=== PATIENT | female | born 1930 | race Caucasian/White ===

== ENCOUNTER → 2016-10-10 | Outpatient (CLI) | payer MEDICARE ==
[~2016-10-10] MED LIST: ALDACTONE 25MG25 M1 PO; ANTIVERT 12.512.5 MG PO; ASPIRIN 81M81 MG/TA2 PO; CALCIUM CARBON600 MG PO; CLARITIN REDITA10 MG PO; COREG 3.123.125 MG/T PO; DITROPAN 5MG TAB5 MG PO; FERROUS SU325 MG/TAB PO; HYZAAR 50-12.1 UDTAB PO; IPRATROPIUM BROM3 M1 IH; LASIX 40MG TABL40 MG PO; MULTI VITAMINS1 TAB PO; NAPROSYN 2250 MG/TAB PO; NATURAL FLAX1000 MG PO; OMEGA 31000 MG PO; OYSCO 500500 M1 PO; PRINZIDE 25 MG-1 TAB; ROXANOL 20MG20 MG/ML SL; SYNTHROID 0.10.15 MG PO; TRIAMCINOLONE A15 G3 TP; TYLENOL 325MG325 MG PO; ULTRAM 50MG TAB50 MG PO; VITAMIN C500 MG PO; VITAMIN D1000 IU PO
== END ==
LOC: MC.RAD 13:09
DX: Z12.31 Encounter for screening mammogram for malignant neoplasm of breast (principal); D24.2 Benign neoplasm of left breast; D24.1 Benign neoplasm of right breast; Z85.3 Personal history of malignant neoplasm of breast

== ENCOUNTER 2016-11-26 19:08 | Inpatient (IN) | payer MEDICARE, OTHER ==
[2016-11-26] VITALS (24 sets, daily range): O2SAT 93–99
[~2016-11-26] VITALS: Ht 165.1 cm; Wt 75.5 kg
[~2016-11-26 19:08] MED LIST changes: -ALDACTONE 25MG25 M1 PO; -ANTIVERT 12.512.5 MG PO; -ASPIRIN 81M81 MG/TA2 PO; -COREG 3.123.125 MG/T PO; -FERROUS SU325 MG/TAB PO; -HYZAAR 50-12.1 UDTAB PO; -IPRATROPIUM BROM3 M1 IH; -NATURAL FLAX1000 MG PO; -OYSCO 500500 M1 PO; -ROXANOL 20MG20 MG/ML SL; -TRIAMCINOLONE A15 G3 TP; -TYLENOL 325MG325 MG PO; -ULTRAM 50MG TAB50 MG PO; -VITAMIN D1000 IU PO
[2016-11-26 20:03] LABS: BASO # 0.1 (0.0-0.2); BASO % 0.3 % (0.0-2.0); EOS # 0.1 (0.0-0.7); EOS % 0.4 % (0-4.0); GRAN # 16.6 (1.4-6.5); GRAN % 86.1 % (42.2-75.2); LYMPH # 0.7 (1.2-3.4); LYMPH % 3.8 % (20.0-51.0); MEAN CELL VOLUME 82 fl (80.0-100.0); MEAN CORPUSCULAR HGB CONC 34 g/dl (33.0-37.0); MEAN PLATELET VOLUME 9.3 fl (7.4-10.4); MONO # 1.7 (0.1-0.6); PLATELET COUNT 367 K/mm3 (130-400); RED BLOOD COUNT 3.72 M/mm3 (4.10-5.30); REDCELL DISTRIBUTION WIDTH-CV 12.9 % (11.5-14.5); WHITE BLOOD COUNT 19.3 K/mm3 (4.8-10.8)
[2016-11-26 20:05] LABS: HEMATOCRIT 30.6 % (37.0-47.0); HEMOGLOBIN 10.4 g/dl (12.5-16.0); MEAN CORPUSCULAR HEMOGLOBIN 28 pg (27.0-31.0)
[2016-11-26 20:07] LABS: ADD PATHOLOGY DIFF REVIEW NO
[2016-11-26] MEDS ORDERED: NATURAL FLAX1000 MG PO (20:09)
[2016-11-26 20:10] LABS: PH 6 (5-8); SQUAMOUS EPITHELIAL None Seen /hpf; URINE APPEARANCE Clear; URINE BACTERIA None Seen /hpf; URINE BILIRUBIN Negative (NEGATIVE); URINE BLOOD Negative (NEGATIVE); URINE COLOR Yellow; URINE GLUCOSE Negative (NEGATIVE); URINE KETONE Negative (NEGATIVE); URINE UROBILINOGEN Negative (NEGATIVE); URINE WBC 0-2 /hpf
[2016-11-26] MEDS ORDERED: HYZAAR 50-12.1 UDTAB PO (20:10)
[2016-11-26] MEDS ORDERED: ANTIVERT 12.512.5 MG PO (20:11)
[2016-11-26 20:13] LABS: INR 1.2 (0.8-3.0); PROTHROMBIN TIME 13.4 SECONDS (9.7-12.8)
[2016-11-26] MEDS ORDERED: FERROUS SU325 MG/TAB PO (20:14)
[2016-11-26] MEDS ORDERED: VITAMIN D1000 IU PO (20:14)
[2016-11-26] MEDS ORDERED: TRIAMCINOLONE A15 G3 TP (20:14)
[2016-11-26 20:15] LABS: ADJUSTED CALCIUM 10.1 mg/dL (8.4-10.2); ALBUMIN 3.6 gm/dL (3.5-5.0); CALCIUM 9.8 mg/dL (8.4-10.2); CREATININE, serum 1.45 mg/dL (0.52-1.25); POTASSIUM 3.6 mmol/L (3.4-5.0); TOTAL PROTEIN 7.3 gm/dL (6.4-8.2)
[2016-11-26] MEDS ORDERED: ASPIRIN 81M81 MG/TA2 PO (20:15)
[2016-11-26 20:16] LABS: PARTIAL THROMBOPLASTIN TIME 30.1 SECONDS (26.0-37.0)
[2016-11-26 20:28] LABS: BAND 2 % (0-10); NEUTROPHILS 86 % (42.0-75.2); TOTAL CELLS COUNTED 100
[2016-11-26 20:30] LABS: TROPONIN-I 0.173 ng/mL (0.000-0.034)
[2016-11-26 20:31] LABS: HYPOCHROMIA 1+
[2016-11-26 20:43] LABS: C-REACTIVE PROTEIN 14.8 mg/dL (0.0-0.9)
[2016-11-26] MEDS ORDERED: ULTRAM 50MG TAB50 MG PO (23:50)
[2016-11-27] VITALS (892 sets, daily range): BP systolic 91–123; BP diastolic 59–73; PULSE 71–92; TEMP 97.2–98.8; O2SAT 87–100
[2016-11-27 01:15] LABS: PH 5 (5-8); SQUAMOUS EPITHELIAL 0-2 /hpf; URINE APPEARANCE Hazy; URINE BACTERIA None Seen /hpf; URINE BILIRUBIN Negative (NEGATIVE); URINE BLOOD Negative (NEGATIVE); URINE COLOR Yellow; URINE GLUCOSE Negative (NEGATIVE); URINE KETONE Negative (NEGATIVE); URINE UROBILINOGEN Negative (NEGATIVE); URINE WBC 20-50 /hpf
[2016-11-27 02:16] LABS: SALICYLATE < 1.0 mg/dL
[2016-11-27 03:39] LABS: VENOUS BLOOD GAS BE 2.9 (-4-4); VENOUS BLOOD GAS SAO2 59.4 % (60-80)
[2016-11-27 03:42] LABS: VENOUS BLOOD GAS SITE VENIPUNCTURE
[2016-11-27 05:25] LABS: ARTERIAL BLD GAS O2 SATURATION 96.8 % (92-100); ARTERIAL BLD GAS TCO2 CT 24.6; ARTERIAL BLOOD GAS HCO3 23.5 meq/L (22-26); ARTERIAL BLOOD GAS PHT 7.45 C (7.35-7.45); ARTERIAL BLOOD GAS pH 7.45 (7.35-7.45); OXYHEMOGLOBIN 95.7 %
[2016-11-27 05:26] LABS: ALLEN TEST YES; ALLENS TEST RESULT PASS; ATS? YES
[2016-11-27 05:53] LABS: BASO % 0.2 % (0.0-2.0); GRAN # 16.7 (1.4-6.5); GRAN % 91.7 % (42.2-75.2); LYMPH # 0.8 (1.2-3.4); LYMPH % 4.2 % (20.0-51.0); MEAN CELL VOLUME 82 fl (80.0-100.0); MEAN CORPUSCULAR HGB CONC 34 g/dl (33.0-37.0); MEAN PLATELET VOLUME 9.5 fl (7.4-10.4); MONO # 0.6 (0.1-0.6); MONO % 3.5 % (1.7-9.3); PLATELET COUNT 295 K/mm3 (130-400); REDCELL DISTRIBUTION WIDTH-CV 12.8 % (11.5-14.5); WHITE BLOOD COUNT 18.1 K/mm3 (4.8-10.8)
[2016-11-27 05:54] LABS: INR 1.4 (0.8-3.0)
[2016-11-27 05:57] LABS: HEMATOCRIT 24.6 % (37.0-47.0); HEMOGLOBIN 8.3 g/dl (12.5-16.0); MEAN CORPUSCULAR HEMOGLOBIN 28 pg (27.0-31.0)
[2016-11-27 06:01] LABS: ADJUSTED CALCIUM 9.4 mg/dL (8.4-10.2); ALBUMIN 2.5 gm/dL (3.5-5.0); CALCIUM 8.2 mg/dL (8.4-10.2); CREATININE, serum 1.24 mg/dL (0.52-1.25); TOTAL PROTEIN 5.5 gm/dL (6.4-8.2)
[2016-11-27 06:16] LABS: POTASSIUM 2.9 mmol/L (3.4-5.0)
[2016-11-27 08:55] LABS: VENOUS BLOOD GAS BE 2.5 (-4-4)
[2016-11-27 08:56] LABS: VENOUS BLOOD GAS SITE CENTRAL LINE
[2016-11-27 12:16] LABS: VENOUS BLOOD GAS BE 0.6 (-4-4); VENOUS BLOOD GAS SAO2 73.7 % (60-80)
[2016-11-27 12:18] LABS: VENOUS BLOOD GAS SITE CENTRAL LINE
[2016-11-27 13:26] LABS: POTASSIUM 4.1 mmol/L (3.4-5.0)
[2016-11-27 16:04] LABS: VENOUS BLOOD GAS BE 2.7 (-4-4); VENOUS BLOOD GAS SAO2 61.4 % (60-80)
[2016-11-27 16:05] LABS: VENOUS BLOOD GAS SITE CENTRAL LINE
[2016-11-27 20:26] LABS: VENOUS BLOOD GAS BE 2.1 (-4-4); VENOUS BLOOD GAS SAO2 62.1 % (60-80)
[2016-11-27 20:27] LABS: VENOUS BLOOD GAS SITE CENTRAL LINE
[2016-11-28] VITALS (789 sets, daily range): BP systolic 95–113; BP diastolic 52–633; PULSE 74–98; TEMP 97.7–100.1; O2SAT 81–100
[2016-11-28 00:30] LABS: VENOUS BLOOD GAS BE 1.9 (-4-4); VENOUS BLOOD GAS SAO2 71.3 % (60-80)
[2016-11-28 00:32] LABS: VENOUS BLOOD GAS SITE CENTRAL LINE
[2016-11-28 04:52] LABS: BASO % 0.1 % (0.0-2.0); EOS % 0.1 % (0-4.0); GRAN % 81.6 % (42.2-75.2); LYMPH # 1.4 (1.2-3.4); LYMPH % 10.4 % (20.0-51.0); MEAN CELL VOLUME 82 fl (80.0-100.0); MEAN CORPUSCULAR HGB CONC 34 g/dl (33.0-37.0); MEAN PLATELET VOLUME 9.3 fl (7.4-10.4); MONO % 7.4 % (1.7-9.3); PLATELET COUNT 278 K/mm3 (130-400); RED BLOOD COUNT 2.74 M/mm3 (4.10-5.30); REDCELL DISTRIBUTION WIDTH-CV 12.9 % (11.5-14.5); WHITE BLOOD COUNT 13.5 K/mm3 (4.8-10.8)
[2016-11-28 04:58] LABS: HEMATOCRIT 22.5 % (37.0-47.0); HEMOGLOBIN 7.6 g/dl (12.5-16.0); MEAN CORPUSCULAR HEMOGLOBIN 28 pg (27.0-31.0)
[2016-11-28 05:00] LABS: ARTERIAL BLD GAS O2 SATURATION 96.9 % (92-100); ARTERIAL BLD GAS TCO2 CT 25.6; ARTERIAL BLOOD GAS BASE EXCESS 1.3 (-2-2); ARTERIAL BLOOD GAS HCO3 24.5 meq/L (22-26); ARTERIAL BLOOD GAS PHT 7.49 C (7.35-7.45); ARTERIAL BLOOD GAS PO2 97.7 mmHg (80-100); ARTERIAL BLOOD GAS PO2T 97.7 (80-100); ARTERIAL BLOOD GAS pH 7.49 (7.35-7.45); OXYHEMOGLOBIN 95.8 %
[2016-11-28 05:01] LABS: VENOUS BLOOD GAS BE 0.7 (-4-4)
[2016-11-28 05:03] LABS: ADJUSTED CALCIUM 9.5 mg/dL (8.4-10.2); ALBUMIN 2.2 gm/dL (3.5-5.0); BILIRUBIN,TOTAL 0.6 mg/dL (0.0-1.0); CALCIUM 8.1 mg/dL (8.4-10.2); CREATININE, serum 1.31 mg/dL (0.52-1.25); POTASSIUM 3.3 mmol/L (3.4-5.0); TOTAL PROTEIN 5.1 gm/dL (6.4-8.2)
[2016-11-28 05:06] LABS: VENOUS BLOOD GAS SITE CENTRAL LINE
[2016-11-28 05:07] LABS: ALLEN TEST YES; ALLENS TEST RESULT PASS; ATS? YES
[2016-11-28 09:04] LABS: VENOUS BLOOD GAS SAO2 66.2 % (60-80); VENOUS BLOOD GAS SITE CENTRAL LINE
[2016-11-28 13:57] LABS: VENOUS BLOOD GAS BE 2.8 (-4-4); VENOUS BLOOD GAS SAO2 65.2 % (60-80)
[2016-11-28 13:58] LABS: VENOUS BLOOD GAS SITE CENTRAL LINE
[2016-11-29] VITALS (825 sets, daily range): BP systolic 105–141; BP diastolic 52–98; PULSE 76–105; TEMP 97.7–100.8; O2SAT 71–100
[2016-11-29 05:53] LABS: BASO # 0.1 (0.0-0.2); BASO % 0.3 % (0.0-2.0); EOS # 0.4 (0.0-0.7); EOS % 2.1 % (0-4.0); GRAN # 12.8 (1.4-6.5); GRAN % 74.7 % (42.2-75.2); LYMPH # 2.1 (1.2-3.4); LYMPH % 12.2 % (20.0-51.0); MEAN CELL VOLUME 83 fl (80.0-100.0); MEAN CORPUSCULAR HGB CONC 34 g/dl (33.0-37.0); MEAN PLATELET VOLUME 9.5 fl (7.4-10.4); MONO # 1.8 (0.1-0.6); MONO % 10.3 % (1.7-9.3); PLATELET COUNT 292 K/mm3 (130-400); RED BLOOD COUNT 3.49 M/mm3 (4.10-5.30); REDCELL DISTRIBUTION WIDTH-CV 13.8 % (11.5-14.5); WHITE BLOOD COUNT 17.1 K/mm3 (4.8-10.8)
[2016-11-29 05:57] LABS: HEMATOCRIT 28.8 % (37.0-47.0); HEMOGLOBIN 9.8 g/dl (12.5-16.0); MEAN CORPUSCULAR HEMOGLOBIN 28 pg (27.0-31.0)
[2016-11-29 06:00] LABS: INR 1.3 (0.8-3.0); PROTHROMBIN TIME 14.4 SECONDS (9.7-12.8)
[2016-11-29 06:03] LABS: ADJUSTED CALCIUM 9.7 mg/dL (8.4-10.2); ALBUMIN 2.4 gm/dL (3.5-5.0); BILIRUBIN,TOTAL 1.1 mg/dL (0.0-1.0); CALCIUM 8.4 mg/dL (8.4-10.2); CREATININE, serum 1.33 mg/dL (0.52-1.25); POTASSIUM 3.9 mmol/L (3.4-5.0); TOTAL PROTEIN 5.3 gm/dL (6.4-8.2)
[2016-11-30] VITALS (547 sets, daily range): BP systolic 90–129; BP diastolic 49–74; PULSE 74–97; TEMP 97.5–99; O2SAT 79–100
[2016-11-30 05:51] LABS: BASO # 0.1 (0.0-0.2); BASO % 0.3 % (0.0-2.0); EOS # 0.3 (0.0-0.7); EOS % 1.6 % (0-4.0); GRAN # 12.3 (1.4-6.5); GRAN % 73.8 % (42.2-75.2); LYMPH % 12.2 % (20.0-51.0); MEAN CELL VOLUME 83 fl (80.0-100.0); MEAN CORPUSCULAR HGB CONC 34 g/dl (33.0-37.0); MEAN PLATELET VOLUME 9.7 fl (7.4-10.4); MONO % 11.7 % (1.7-9.3); PLATELET COUNT 271 K/mm3 (130-400); RED BLOOD COUNT 3.38 M/mm3 (4.10-5.30); REDCELL DISTRIBUTION WIDTH-CV 14.1 % (11.5-14.5); WHITE BLOOD COUNT 16.7 K/mm3 (4.8-10.8)
[2016-11-30 06:02] LABS: HEMATOCRIT 28.2 % (37.0-47.0); HEMOGLOBIN 9.5 g/dl (12.5-16.0); MEAN CORPUSCULAR HEMOGLOBIN 28 pg (27.0-31.0)
[2016-11-30 06:35] LABS: ADJUSTED CALCIUM 9.5 mg/dL (8.4-10.2); ALBUMIN 2.3 gm/dL (3.5-5.0); BILIRUBIN,TOTAL 1.1 mg/dL (0.0-1.0); CALCIUM 8.1 mg/dL (8.4-10.2); CREATININE, serum 1.34 mg/dL (0.52-1.25); POTASSIUM 3.4 mmol/L (3.4-5.0); TOTAL PROTEIN 5.1 gm/dL (6.4-8.2)
[2016-11-30 07:23] LABS: INR 1.4 (0.8-3.0); PROTHROMBIN TIME 16.2 SECONDS (9.7-12.8)
[2016-12-01 01:19] VITALS: BP 123/72; PULSE 83; TEMP 100.7; TEMP 102.8
[2016-12-01 04:59] VITALS: BP 91/46; PULSE 57; TEMP 100.6
[2016-12-01 10:02] VITALS: BP 103/54; PULSE 96; TEMP 98.6
[2016-12-01 14:04] VITALS: BP 99/56; PULSE 96; TEMP 98.9
[2016-12-01 17:44] VITALS: BP 121/68; PULSE 80; TEMP 98.8
[2016-12-01 22:06] VITALS: BP 122/82; PULSE 100; TEMP 98
[2016-12-02] VITALS (7 sets, daily range): BP systolic 86–870; BP diastolic 45–51; PULSE 80–103; TEMP 98.3–99.8
[2016-12-02 07:26] LABS: POTASSIUM 3.8 mmol/L (3.4-5.0)
[2016-12-02 11:22] LABS: CREATININE, serum 1.58 mg/dL (0.52-1.25)
[2016-12-03] VITALS (7 sets, daily range): BP systolic 94–132; BP diastolic 42–69; PULSE 52–104; TEMP 98.2–100.6
[2016-12-03 13:02] LABS: MEAN CELL VOLUME 85 fl (80.0-100.0); MEAN CORPUSCULAR HGB CONC 34 g/dl (33.0-37.0); MEAN PLATELET VOLUME 10.4 fl (7.4-10.4); PLATELET COUNT 251 K/mm3 (130-400); RED BLOOD COUNT 3.12 M/mm3 (4.10-5.30); WHITE BLOOD COUNT 19.7 K/mm3 (4.8-10.8)
[2016-12-03 13:04] LABS: ADD PATHOLOGY DIFF REVIEW NO; HEMATOCRIT 26.4 % (37.0-47.0); HEMOGLOBIN 8.9 g/dl (12.5-16.0); MEAN CORPUSCULAR HEMOGLOBIN 29 pg (27.0-31.0)
[2016-12-03 13:46] LABS: BAND 9 % (0-10); BURR CELLS 1+; EOSINOPHIL 5 % (0-4); NEUTROPHILS 73 % (42.0-75.2); PLATELET ESTIMATE NORMAL (NORMAL); TOTAL CELLS COUNTED 100
[2016-12-04 05:04] VITALS: BP 119/82; PULSE 102; TEMP 98.5
[2016-12-04 10:00] VITALS: BP 95/50; PULSE 88; TEMP 99.4
[2016-12-04 12:58] VITALS: BP 111/63; PULSE 89; TEMP 98.3
[2016-12-04 18:00] VITALS: BP 102/54; PULSE 90; TEMP 98.2
[2016-12-04 21:33] VITALS: BP 116/64; PULSE 83; TEMP 98.7
[2016-12-05] VITALS (7 sets, daily range): BP systolic 103–142; BP diastolic 52–82; PULSE 63–91; TEMP 98.2–99
[2016-12-05 07:39] LABS: MEAN CELL VOLUME 82 fl (80.0-100.0); MEAN CORPUSCULAR HGB CONC 35 g/dl (33.0-37.0); MEAN PLATELET VOLUME 9.6 fl (7.4-10.4); PLATELET COUNT 237 K/mm3 (130-400); RED BLOOD COUNT 2.88 M/mm3 (4.10-5.30); REDCELL DISTRIBUTION WIDTH-CV 14.5 % (11.5-14.5); WHITE BLOOD COUNT 14.9 K/mm3 (4.8-10.8)
[2016-12-05 07:53] LABS: HEMATOCRIT 23.7 % (37.0-47.0); HEMOGLOBIN 8.3 g/dl (12.5-16.0); MEAN CORPUSCULAR HEMOGLOBIN 29 pg (27.0-31.0)
[2016-12-05 07:59] LABS: CALCIUM 7.4 mg/dL (8.4-10.2); CREATININE, serum 1.73 mg/dL (0.52-1.25)
[2016-12-05] MEDS ORDERED: OYSCO 500500 M1 PO (12:36)
[2016-12-05] MEDS ORDERED: TYLENOL 325MG325 MG PO (12:36)
[2016-12-06 01:03] VITALS: BP 128/73; PULSE 76; TEMP 97.8
[2016-12-06 06:28] VITALS: BP 119/67; PULSE 73; TEMP 98.1
[2016-12-06 10:28] VITALS: BP 121/73; PULSE 94; TEMP 98.1
[2016-12-06 13:16] VITALS: BP 132/61; PULSE 84; TEMP 98.2
[2016-12-06] MEDS ORDERED: COREG 3.123.125 MG/T PO (14:34)
[2016-12-06] MEDS ORDERED: ALDACTONE 25MG25 M1 PO (14:35)
== END 2016-12-06 15:53 | DRG 871 ==
LOC: COL.ER 19:08 → SURG 22:04 → IMCU 22:04 → ICU 22:04 → IMCU 11-28 19:45 → SURG 11-30 09:30
PROVIDERS: Emergency Medicine; Family Medicine; Internal Medicine; Internal Medicine Cardiovascular Disease; Nurse Practitioner Family
PROC: 0FB03ZX Excision of Liver, Percutaneous Approach, Diagnostic (ICD-10-PCS; principal; 2016-11-29)
DX: A41.9 Sepsis, unspecified organism (principal); R65.21 Severe sepsis with septic shock; I21.4 Non-ST elevation (NSTEMI) myocardial infarction; N17.9 Acute kidney failure, unspecified; E87.1 Hypo-osmolality and hyponatremia; N13.6 Pyonephrosis; C22.8 Malignant neoplasm of liver, primary, unspecified as to type; E44.0 Moderate protein-calorie malnutrition; I10 Essential (primary) hypertension; I25.10 Atherosclerotic heart disease of native coronary artery without angina pectoris; Z85.3 Personal history of malignant neoplasm of breast; E87.6 Hypokalemia; D64.9 Anemia, unspecified
CPT/HCPCS: 99223-AI; 99233-AI; 99238; A4315; A9502; C1751; J1250; J1644; J1650; J1720; J1940; J2543; J2785; J3480; J7030; J7050; P9016

== ENCOUNTER 2016-12-12 10:48 | Inpatient (IN) | payer MEDICARE, OTHER ==
[2016-12-12] VITALS (289 sets, daily range): BP systolic 86–97; BP diastolic 49–63; PULSE 76–82; TEMP 97.6–97.8; O2SAT 81–100
[~2016-12-12] VITALS: Ht 165.1 cm; Wt 74.5 kg
[~2016-12-12 10:48] MED LIST changes: +ALDACTONE 25MG25 M1 PO; +ANTIVERT 12.512.5 MG PO; +ASPIRIN 81M81 MG/TA2 PO; +COREG 3.123.125 MG/T PO; +FERROUS SU325 MG/TAB PO; +HYZAAR 50-12.1 UDTAB PO; +NATURAL FLAX1000 MG PO; +OYSCO 500500 M1 PO; +TRIAMCINOLONE A15 G3 TP; +TYLENOL 325MG325 MG PO; +ULTRAM 50MG TAB50 MG PO; +VITAMIN D1000 IU PO
[2016-12-12 11:41] LABS: MEAN CELL VOLUME 82 fl (80.0-100.0); MEAN CORPUSCULAR HGB CONC 35 g/dl (33.0-37.0); MEAN PLATELET VOLUME 8.9 fl (7.4-10.4); PLATELET COUNT 288 K/mm3 (130-400); RED BLOOD COUNT 2.92 M/mm3 (4.10-5.30); REDCELL DISTRIBUTION WIDTH-CV 14.8 % (11.5-14.5)
[2016-12-12 11:44] LABS: ADD PATHOLOGY DIFF REVIEW NO; HEMATOCRIT 23.8 % (37.0-47.0); HEMOGLOBIN 8.4 g/dl (12.5-16.0); MEAN CORPUSCULAR HEMOGLOBIN 29 pg (27.0-31.0); WHITE BLOOD COUNT 41.4 K/mm3 (4.8-10.8)
[2016-12-12 11:53] LABS: VENOUS BLOOD GAS BE -1.7 (-4-4); VENOUS BLOOD GAS SAO2 76.6 % (60-80)
[2016-12-12 11:54] LABS: VENOUS BLOOD GAS SITE VENIPUNCTURE
[2016-12-12 12:09] LABS: PH 5 (5-8); SQUAMOUS EPITHELIAL 0-2 /hpf; URINE APPEARANCE Clear; URINE BACTERIA None Seen /hpf; URINE BILIRUBIN Negative (NEGATIVE); URINE BLOOD Negative (NEGATIVE); URINE COLOR Yellow; URINE GLUCOSE Negative (NEGATIVE); URINE KETONE Negative (NEGATIVE); URINE UROBILINOGEN Negative (NEGATIVE)
[2016-12-12 12:13] LABS: CALCIUM 7.9 mg/dL (8.4-10.2); CREATININE, serum 1.29 mg/dL (0.52-1.25); POTASSIUM 3.6 mmol/L (3.4-5.0)
[2016-12-12 12:20] LABS: BAND 9 % (0-10); NEUTROPHILS 88 % (42.0-75.2); PLATELET ESTIMATE NORMAL (NORMAL); TOTAL CELLS COUNTED 100
[2016-12-12 12:26] LABS: TROPONIN-I 0.089 ng/mL (0.000-0.034)
[2016-12-12 19:09] LABS: VENOUS BLOOD GAS BE -3.4 (-4-4); VENOUS BLOOD GAS SAO2 61.2 % (60-80); VENOUS BLOOD GAS SITE CENTRAL LINE
[2016-12-12 22:54] LABS: VENOUS BLOOD GAS BE -5.3 (-4-4); VENOUS BLOOD GAS SAO2 45.8 % (60-80); VENOUS BLOOD GAS SITE CENTRAL LINE
[2016-12-13] VITALS (53 sets, daily range): BP systolic 81–129; BP diastolic 41–85; PULSE 78–119; TEMP 98.1–98.5; O2SAT 95–100
[2016-12-13 02:48] LABS: VENOUS BLOOD GAS BE -5.1 (-4-4); VENOUS BLOOD GAS SAO2 67.5 % (60-80); VENOUS BLOOD GAS SITE CENTRAL LINE
[2016-12-13 05:42] LABS: MEAN CELL VOLUME 84 fl (80.0-100.0); MEAN CORPUSCULAR HGB CONC 34 g/dl (33.0-37.0); MEAN PLATELET VOLUME 9.1 fl (7.4-10.4); PLATELET COUNT 280 K/mm3 (130-400); RED BLOOD COUNT 2.57 M/mm3 (4.10-5.30); REDCELL DISTRIBUTION WIDTH-CV 15.1 % (11.5-14.5)
[2016-12-13 05:51] LABS: ARTERIAL BLD GAS O2 SATURATION 96.5 % (92-100); ARTERIAL BLD GAS TCO2 CT 19.4; ARTERIAL BLOOD GAS BASE EXCESS -5.6 (-2-2); ARTERIAL BLOOD GAS HCO3 18.5 meq/L (22-26); ARTERIAL BLOOD GAS PO2 90.8 mmHg (80-100); ARTERIAL BLOOD GAS PO2T 90.8 (80-100); OXYHEMOGLOBIN 95.8 %
[2016-12-13 05:58] LABS: ALLEN TEST YES; ALLENS TEST RESULT PASS; ATS? YES
[2016-12-13 05:59] LABS: INR 1.6 (0.8-3.0); PROTHROMBIN TIME 17.4 SECONDS (9.7-12.8)
[2016-12-13 06:00] LABS: HEMATOCRIT 21.6 % (37.0-47.0); HEMOGLOBIN 7.3 g/dl (12.5-16.0); MEAN CORPUSCULAR HEMOGLOBIN 28 pg (27.0-31.0); WHITE BLOOD COUNT 40.5 K/mm3 (4.8-10.8)
[2016-12-13 06:01] LABS: ADD PATHOLOGY DIFF REVIEW NO
[2016-12-13 06:02] LABS: ADJUSTED CALCIUM 8.5 mg/dL (8.4-10.2); ALBUMIN 1.9 gm/dL (3.5-5.0); BILIRUBIN,TOTAL 0.6 mg/dL (0.0-1.0); CALCIUM 6.8 mg/dL (8.4-10.2); CREATININE, serum 1.27 mg/dL (0.52-1.25); PARTIAL THROMBOPLASTIN TIME 33.8 SECONDS (26.0-37.0); POTASSIUM 3.3 mmol/L (3.4-5.0); TOTAL PROTEIN 4.6 gm/dL (6.4-8.2)
[2016-12-13 06:19] LABS: BAND 31 % (0-10); EOSINOPHIL 1 % (0-4); HYPOCHROMIA 1+; NEUTROPHILS 61 % (42.0-75.2); PLATELET ESTIMATE NORMAL (NORMAL)
[2016-12-13 06:20] LABS: TOTAL CELLS COUNTED 200
[2016-12-13 11:04] LABS: VENOUS BLOOD GAS BE -5.2 (-4-4); VENOUS BLOOD GAS SAO2 61.3 % (60-80)
[2016-12-13 11:05] LABS: VENOUS BLOOD GAS SITE CENTRAL LINE
[2016-12-15] MEDS ORDERED: IPRATROPIUM BROM3 M1 IH (09:46)
[2016-12-15] MEDS ORDERED: ROXANOL 20MG20 MG/ML SL (09:47)
== END 2016-12-15 15:03 | disposition hospice, inpatient (51) | DRG 871 ==
LOC: COL.ER 10:48 → ICU 12:41 → MEDICAL 12-13 16:00
PROVIDERS: Emergency Medicine; Family Medicine
PROC: 02HV33Z Insertion of Infusion Device into Superior Vena Cava, Percutaneous Approach (ICD-10-PCS; principal; 2016-12-12)
DX: A41.9 Sepsis, unspecified organism (principal); J18.9 Pneumonia, unspecified organism; J96.01 Acute respiratory failure with hypoxia; I21.4 Non-ST elevation (NSTEMI) myocardial infarction; I50.23 Acute on chronic systolic (congestive) heart failure; C22.8 Malignant neoplasm of liver, primary, unspecified as to type; C25.9 Malignant neoplasm of pancreas, unspecified; Z66 Do not resuscitate; Z51.5 Encounter for palliative care; R65.20 Severe sepsis without septic shock; I11.0 Hypertensive heart disease with heart failure; I25.10 Atherosclerotic heart disease of native coronary artery without angina pectoris; I48.91 Unspecified atrial fibrillation
CPT/HCPCS: 99223-AI; 99232-AI; 99233-AI; 99239; C1751; J0696; J1644; J1940; J1956; J2060; J2270; J2543; J3370; J7030; J7040; J7050; J7060